=== PATIENT | female | born 1960 | race Caucasian/White ===

== ENCOUNTER 2018-07-11 09:48 | Emergency (ER) | payer MEDICAID ==
--- NOTE | 2018-07-11 10:21 | Emergency Department Record ---
History of Present Illness - General Chief Complaint: Back Pain/Injury Stated Complaint: BACK PAIN Time Seen by Provider: 07/11/18 10:04 Source: Patient Mode of Arrival: Ambulatory Limitations: No limitations - History of Present Illness Initial Comments: The patient is here due to low back pain for 8 days since she laid on a hard surface for an MRI. The pain is mainly over the R lower back and is sharp and stabbing. It is much worse with bending, twisting, walking and is especially worse with standing from a sitting position. There is no radiation down the legs and no leg numbness, weakness, or any bowel or bladder issues. She also denies any dysuria, AP, fever or vomiting. The patient did see a Chiropracter twice in the last week with minimal improvement and she did drive here to the ER with no problems. She also denies any recent surgeries, injuries and is not an IV drug user. MD Complaint: Back pain Onset/Timin -: Days(s) Treatment Prior to Arrival Comment:: pt saw chiropractor - Related Data Previous Rx's Medication Instructions Recorded Cyclobenzaprine HCl [Flexeril] 10 mg PO TID PRN #20 tablet 07/11/18 Hydrocodone/Acetaminophen [Spearfish 1 each PO QID #12 tablet 07/11/18 5-325 Tablet] Allergies Allergy/AdvReac Type Severity Reaction Status Date / Time Penicillins Allergy Mild as a child Verified 07/11/18 10:01 Sulfa (Sulfonamide Allergy Mild HIVES Verified 07/11/18 10:01 Antibiotics) Travel Screening - Travel/Exposure Within Last 30 Days Have you traveled within the last 30 days?: No - Travel/Exposure Within Last Year Have you traveled outside the [place] in the last year?: No - Additonal Travel Details Have you been exposed to anyone with a communicable illness?: No Review of Systems Constitutional: Denies: Chills, Fever Eyes: Denies: Eye discharge ENT: Denies: Congestion Respiratory: Denies: Cough, Dyspnea Cardiovascular: Denies: Arrhythmia Past Medical History - SOCIAL HISTORY Smoking Status: Never smoker Alcohol Use: Rare Drug Use: None - RESPIRATORY Hx Respiratory Disorders: Yes Hx Pneumonia: Yes (yearly as a child, last time 3-4years ago) Hx Sleep Apnea: Yes Hx of CPAP: Yes - CARDIOVASCULAR Hx Cardio Disorders: Yes - NEURO Hx Neuro Disorders: No - GI Hx GI Disorders: No - Hx Genitourinary Disorders: No Comment:: endometriosis - ENDOCRINE Hx Endocrine Disorders: No - MUSCULOSKELETAL Hx Musculoskeletal Disorders: Yes Hx Arthritis: Yes - PSYCH Hx Psych Problems: No - HEMATOLOGY/ONCOLOGY Hx Hematology/Oncology Disorders: Yes Hx Clotting Problems: Yes (DIC w/ 3rd ) Hx Blood Transfusions: Yes (21 units w/ 3rd ) Hx Blood Transfusion Reaction: No Family Medical History Any Significant Family History?: Yes Family Hx Comment (NOT TO BE USED IN PLACE OF ITEMS BELOW): mom, dad, brother, sister all thyroid problems Hx Alcohol Use: Grandparents Hx Anxiety: Brother/Sister Hx Cancer: Father *Cancer Comment: skin, prostate Hx Dementia: Father, Mother, Grandparents Hx Depression: Brother/Sister Hx Heart Disease: Father, Mother, Grandparents Hx HTN: Father, Brother/Sister, Grandparents Hx Kidney Disease: Father, Mother Hx Stroke: Mother Physical Exam - General General Appearance: Alert, Oriented x3, Cooperative, No acute distress - Head Head exam: Atraumatic, Normocephalic, Normal inspection - Eye Eye exam: Normal appearance, PERRL - ENT Throat exam: Normal inspection. negative: Tonsillar erythema, Tonsillar exudate - Neck Neck exam: Normal inspection, Full ROM. negative: Tenderness - Respiratory Respiratory exam: Normal lung sounds bilaterally. negative: Respiratory distress - Cardiovascular Cardiovascular Exam: Regular rate, Normal rhythm, Normal heart sounds - GI/Abdominal GI/Abdominal exam: Soft, Normal bowel sounds. negative: Tenderness - Extremities Extremities exam: Normal inspection, Full ROM, Normal capillary refill, Other ( Neg SLR bilaterally.). negative: Tenderness - Back Back exam: Reports: Normal inspection, Paraspinal tenderness (The pain is 100% reproducible to palpation in the R lower back.), Tenderness. Denies: CVA tenderness (R), CVA tenderness (L), Muscle spasm, Vertebral tenderness Image of Body Front/Back: 1 - Area of pain and tenderness. - Neurological Neurological exam: Alert, Normal gait, Oriented X3, Reflexes normal (The patient 's R patellar reflex and achilles reflexes are 2+ and equal bilaterally. I did not test the L patellar reflex due to the patient having a L knee brace in place due to a meniscal injury.). negative: Abnormal gait, Altered, Motor sensory deficit (The patient's motor and sensory functions are WNL's and equal bilaterally.) Course Vital Signs 07/11/18 09:55 Temperature 99.3 F Pulse Rate 84 Respiratory 16 Rate Blood Pressure 143/75 Pulse Ox 99 - Reevaluation(s) Reevaluation #1: The patient is doing OK at this time. She is resting comfortably and denies any new complaints. She clearly does not have any Neurological issues at this time. We will place her on a short course of pain medicines and muscle relaxers and will have her F/U with her PCP later this week. 07/11/18 11:05 Medical Decision Making - Data Complexity MDM Data: Labs Ordered and/or Reviewed Disposition Disposition: Discharge Clinical Impression: Low back pain Qualifiers: Chronicity: acute Back pain laterality: right Sciatica presence: without sciatica Qualified Code(s): M54.5 - Low back pain Disposition: Home, Self-Care Condition: (2) Stable Instructions: Low Back Strain (ED) Additional Instructions: Please rest and take the pain medicine and muscle relaxer as directed. Please see your family doctor for recheck in 3 days if not better. Return to the ER for any worsening symptoms. Prescriptions: Cyclobenzaprine HCl [Flexeril] 10 mg PO TID PRN #20 tablet PRN Reason: Pain Hydrocodone/Acetaminophen [Spearfish 5-325 Tablet] 1 each PO QID #12 tablet Forms: Patient Portal Access Time of Disposition: 11:08 Quality - Quality Measures Quality Measures: N/A - Blood Pressure Screening View Details: Yes Does Patient Have Any of the Following: No Blood Pressure Classification: Hypertensive Reading Systolic Measurement: 143 Diastolic Measurement: 75 Screening for High Blood Pressure: < First Hypertensive BP, F/U Documented > [ [id number]] First Hypertensive Follow-up Interventions: Referral to alternative/primary care provider.
[2018-07-11] MEDS: KETOROLAC 30 MG/ML VIAL IM ONE (10:32)
[2018-07-11 11:00] LABS: URINE APPEARANCE CLOUDY; URINE BILIRUBIN NEGATIVE (NEGATIVE); URINE BLOOD NEGATIVE (NEGATIVE); URINE COLOR YELLOW; URINE GLUCOSE (UA) NEGATIVE (NEGATIVE); URINE KETONE NEGATIVE (NEGATIVE); URINE LEUKOCYTE ESTERASE NEGATIVE (NEGATIVE); URINE NITRITE NEGATIVE (NEGATIVE); URINE PROTEIN NEGATIVE (NEGATIVE); URINE UROBILINOGEN 0.2 E.U./dL (0.20 - 1.00)
== END 2018-07-11 11:38 | disposition home or self-care (01) ==
LOC: ER 09:48
DX: M54.5 Low back pain (principal)
CPT/HCPCS: 81003; 96372; 99283; J1885